=== PATIENT | female | born 1975 | race African-American/Black ===

== ENCOUNTER 2023-12-09 15:45 | Emergency (ER) | payer OTHER, SELFPAY ==
--- NOTE | ~2023-12-09 | CT_ITS ---
EXAMINATION: CT abdomen pelvis w con DATE: 12/09/2023 22:24 INDICATION: Abdominal pain, nausea and vomiting TECHNIQUE: Computed tomography (CT) of the abdomen and pelvis was performed with 100 mL Omnipaque-350 intravenous contrast. Automated exposure control and iterative reconstruction technique were employe d. The dose-length product was 342.67 mGy-cm. COMPARISON: None FINDINGS: Minimal dependent atelectasis in the bilateral lower lobes. Minimal right and trace left posterior la yering pleural effusions. Heart size is normal. Small pericardial effusion. Gallbladder, liver, splee n, pancreas, bilateral adrenal glands and kidneys are normal. Bladder, anteverted uterus and bilatera l adnexa are unremarkable. Normal appendix. There are few diverticula along the descending colon with out adjacent comparison to suggest diverticulitis. No bowel obstruction. Mild lumbar dextrocurvature with mild spondylosis.. IMPRESSION: 1. No acute intra-abdominal/pelvic process. 2. Small pericardial and minimal right and trace left pleural effusions. Reviewed, dictated and finalized at location A. [facility]
[2023-12-09 16:05] VITALS: BP 129/75; PULSE 74; RESP 16; TEMP 36.7; O2SAT 99
[2023-12-09 18:40] VITALS: BP 125/84; PULSE 82; TEMP 37.2; O2SAT 100
[2023-12-09 21:40] LABS: Basophils Percent Auto 0.9 % (0.2-1.2); Eosinophils Absolute Auto 0.1 K/mm3 (0-0.3); Eosinophils Percent Auto 1.1 % (0-4.4); Hematocrit 38.3 % (37.0-47.0); Hemoglobin 12.2 g/dL (12.0-15.0); Immature Granulocyte Absolute 0.01 K/mm3 (0.00-0.031); Immature Granulocyte Percent A 0.2 % (0-0.5); Lymphocytes Absolute Auto 2.59 K/mm3 (0.9-3.2); Lymphocytes Percent Auto 55.8 % (18.3-44.2); Mean Corpuscular HGB Conc 31.9 g/dl (32-36); Mean Corpuscular Hemoglobin 30.1 pg (26-34); Mean Corpuscular Volume 94.6 fl (80-100); Mean Platelet Volume 9.8 fl (7.4-10.4); Monocytes Absolute Auto 0.4 K/mm3 (0.1-0.6); Monocytes Percent Auto 8.4 % (2.6-8.5); Neutrophils Absolute Auto 1.6 K/mm3 (1.3-6.7); Neutrophils Percent Auto 33.6 % (45.5-73.1); Platelet Count Result 235 k/mm3 (150-375); Red Blood Count 4.05 M/mm3 (4.2-5.4); Red Cell Distribution Width 12.2 % (11.5-14.5); White Blood Count 4.6 K/mm3 (4.5-10.0)
[2023-12-09 21:46] LABS: Add Urine Microscopic? YES; Appearance Urine Clear (Clear); Blood Urine Trace-Intact (Negative); Color Urine Yellow (Yellow); Glucose Urine UA Negative (Negative); Ketones Urine Negative (Negative); Protein Urine 1+ mg/dL (Negative); Specific Grav Ur >= 1.030 (1.001-1.035)
[2023-12-09 21:47] LABS: Bilirubin Urine 1+ (Negative); Leukocyte Esterase Ur 1+ LEU/UL (Negative); Nitrate Urine Negative (Negative)
[2023-12-09 21:51] LABS: Alanine Aminotransferase 36 U/L (6-35); Albumin Level 4.6 g/dL (3.5-5.1); Alkaline Phosphatase 66 U/L (38-126); Anion Gap 9 mmol/L (8-16); Aspartate Amino Transferase 25 U/L (14-36); Bilirubin,Total 0.7 mg/dL (0.2-1.3); Blood Urea Nitrogen 15 mg/dL (7-17); Calcium 9.4 mg/dL (8.4-10.2); Carbon Dioxide 30 mmol/L (22-30); Chloride 101 mmol/L (98-107); Estimated CRCL calculation 60 ml/min; Estimated Glomerular Filt Rate > 60; Glucose 85 mg/dL (65-110); Lipase 104 U/L (23-300); Potassium 3.7 mmol/L (3.4-5.0); Sodium 140 mmol/L (137-145)
[2023-12-09 21:52] LABS: Squamous Epithelial Cell Urine Few /hpf (Few)
[2023-12-09 21:53] LABS: Bacteria Urine Trace /hpf; Mucus Urine Present /lpf
[2023-12-09] MEDS: ONDANSETRON INJ 4 MG/2 ML VIAL IV PUSH (22:13)
[2023-12-09] MEDS: PANTOPRAZOLE SODIUM IV 40 MG VIAL IV PUSH (22:13)
[2023-12-09] MEDS: MORPHINE SULFATE (*CRX) 4 MG/ML INJ IV PUSH (22:13)
[2023-12-09] MEDS: SODIUM CHLORIDE 0.9% IV 1,000 ML 999 ML IV CONT (22:17)
[2023-12-09 23:38] VITALS: BP 134/72; PULSE 62; RESP 15; O2SAT 100
[2023-12-10] MEDS: PROCHLORPERAZINE EDISYLATE 10 MG/2 ML VIAL IV PUSH (00:28)
[2023-12-10 00:29] VITALS: BP 142/74; PULSE 82; RESP 15; O2SAT 100
--- NOTE | 2023-12-10 02:34 | ED.GENADULT ---
HPI - General Adult General Chief complaint: Nausea/Vomiting/Diarrhea Stated complaint: nausea Time Seen by Provider: 12/09/23 21:33 History of Present Illness HPI narrative: patient 48-year-old female who presents emerged from with chief complaint of nausea vomitingPatient was sent from chest done after she had been having multiple episodes of vomiting. Patient reports she has abdominal discomfort and reports that she has had issues with nausea vomiting past. Related Data Allergies Allergy/AdvReac Type Severity Reaction Status Date / Time Sulfa (Sulfonamide Allergy Other Verified 12/09/23 22:12 Antibiotics) Review of Systems Review of Systems: A 10 system review of systems was completed on the patient and is negative except for what is stated in the HPI. Nursing and ancillary documentation was reviewed. Exam Narrative: GENERAL: Well-appearing, well-nourished, and in no acute distress. HEAD: Normocephalic, atraumatic. EYES: PERRLA and EOMI. ENT: Nares clear, no rhinorrhea or epistaxis. Mucous membranes moist. NECK: Supple. CHEST: Clear to auscultation. No respiratory distress. HEART: Regular rate and rhythm. No murmur heard. Normal peripheral pulses. ABDOMEN: Soft, nontender, nondistended, normal active bowel sounds. EXTREMITIES: Normal range of motion. No edema. SKIN: Warm, dry, no rash. NEURO: No focal deficits. Alert and oriented x3. PSYCH: Normal mood and affect. Course Vital Signs Vital signs: Vital Signs Temperature 36.7 C 12/09/23 16:05 Pulse Rate 74 12/09/23 16:05 Respiratory Rate 16 12/09/23 16:05 Blood Pressure 129/75 12/09/23 16:05 Pulse Oximetry 99 12/09/23 16:05 Temperature 37.2 C 12/09/23 18:40 Pulse Rate 82 12/10/23 00:29 Respiratory Rate 15 12/10/23 00:29 Blood Pressure 142/74 H 12/10/23 00:29 Pulse Oximetry 100 12/10/23 00:29 Medical Decision Making [facility] Narrative Medical decision making narrative: Differential diagnosis includes gastritis, gastroenteritis, viral syndrome laboratory studies were obtained on the patient which were within normal limits. Urinalysis showed for 6 white blood cells are also co-sign esterase the patient's nausea was controlled in the ER Vital Signs Vital Signs: Vital Signs Temperature 36.7 C 12/09/23 16:05 Pulse Rate 74 12/09/23 16:05 Respiratory Rate 16 12/09/23 16:05 Blood Pressure 129/75 12/09/23 16:05 Pulse Oximetry 99 12/09/23 16:05 Temperature 37.2 C 12/09/23 18:40 Pulse Rate 82 12/10/23 00:29 Respiratory Rate 15 12/10/23 00:29 Blood Pressure 142/74 H 12/10/23 00:29 Pulse Oximetry 100 12/10/23 00:29 Lab Data 12/09/23 21:31 12/09/23 21:31 Labs: Lab Results 12/09/23 Range/Units 21:31 WBC 4.6 (4.5-10.0) K/mm3 RBC 4.05 L (4.2-5.4) M/mm3 Hgb 12.2 (12.0-15.0) g/dL Hct 38.3 (37.0-47.0) % MCV 94.6 (80-100) fl MCH 30.1 (26-34) pg MCHC 31.9 L (32-36) g/dl RDW 12.2 (11.5-14.5) % Plt Count 235 (150-375) k/mm3 MPV 9.8 (7.4-10.4) fl Immature Gran % (Auto) 0.2 (0-0.5) % Neut % (Auto) 33.6 L (45.5-73.1) % Lymph % (Auto) 55.8 H (18.3-44.2) % [place] % (Auto) 8.4 (2.6-8.5) % Eos % (Auto) 1.1 (0-4.4) % Baso % (Auto) 0.9 (0.2-1.2) % Lymph # (Auto) 2.59 (0.9-3.2) K/mm3 [place] # (Auto) 0.4 (0.1-0.6) K/mm3 Eos # (Auto) 0.1 (0-0.3) K/mm3 Baso # (Auto) 0.0 (0.0-0.1) K/mm3 Abs Immat Gran (auto) 0.01 (0.00-0.031) K/mm3 Absolute Neuts (auto) 1.6 (1.3-6.7) K/mm3 Absolute Nucleated RBC 0.0 (0.0-0.012) K/mm3 Nucleated RBC % 0.0 (0.0-0.2) % Sodium 140 (137-145) mmol/L Potassium 3.7 (3.4-5.0) mmol/L Chloride 101 (98-107) mmol/L Carbon Dioxide 30 (22-30) mmol/L Anion Gap 9 (8-16) mmol/L BUN 15 (7-17) mg/dL Creatinine 0.90 (0.7-1.0) mg/dL Estim Creat Clear Calc 60 ml/min Estimated GFR > 60 (59 - ) Glucose 85 (65-110) mg/dL Jose
[2023-12-10 02:56] VITALS: BP 120/78; PULSE 65; RESP 14; O2SAT 100
== END 2023-12-10 02:57 | disposition home or self-care (01) ==
PROVIDERS: Emergency Provider Emergency Medicine; PCP Orthopaedic Surgery Orthopaedic Trauma
DX: N39.0 Urinary tract infection, site not specified (principal); R11.2 Nausea with vomiting, unspecified
CPT/HCPCS: 36415; 74177; 80053; 81001; 81025; 83690; 85025; 87086; 87147; 87181; 87186; 96361; 96374; 96375; 99284; C9113; J0780; J2270; J2405; J7030; Q9967